=== PATIENT | male | born 1990 | race Caucasian/White ===

== ENCOUNTER 2017-10-22 07:56 | Emergency (ER) | payer MEDICAID, OTHER ==
[2017-10-22 08:08] VITALS: BP 120/96
--- NOTE | 2017-10-22 08:35 | UC ---
Throat Pain/Nasal Jaison HPI - HPI Summary HPI Summary: 27 y/o female presents to the urgent care c/o sinus congestion and chest congestion for the past months. Pt reports symptoms started with a common cold. Her has been taking Nyquil, Dayquil and Mucinex w/o any relief of symptoms. For the past week symptoms are getting worse, Cough is productive with green sputum , mild SOB, wheezing and subjective chill and fever at night. Pt denies chest pain, abdominal pain, N/V/D or urinary symptoms. No travel ouside the country - History of Current Complaint Chief Complaint: UCGeneralIllness Stated Complaint: CONGESTED Time Seen by Provider: 10/22/17 08:33 Hx Obtained From: Patient Onset/Duration: Gradual Onset, Lasting Weeks - 4 weeks, Worse Since - 1 week Severity: Moderate Pain Intensity: 6 - headache Pain Scale Used: 0-10 Numeric Cough: Sputum Appears - green Associated Signs & Symptoms: Positive: Wheezing, Sinus Discomfort, Nasal Discharge, Fever - subjective - Epiglottits Risk Factors Epiglottis Risk Factors: Negative - Allergies/Home Medications Allergies/Adverse Reactions: Allergies Allergy/AdvReac Type Severity Reaction Status Date / Time No Known Allergies Allergy Verified 10/22/17 08:08 Home Medications: Home Medications Pseudoephedrine-Guaifenesin [Mucinex D 60-600 mg] 1 tab PO Q12HR PRN 10/22/17 [ History Confirmed 10/22/17] PMH/Surg Hx/FS Hx/Imm Hx Previously Healthy: Yes - Pt denies PMHx - Surgical History Surgical History: Yes Surgery Procedure, Year, and Place: right elbow reconstruction r/t fx dislocation - at 8 years old - Family History Known Family History: Positive: Hypertension - Social History Occupation: Employed Full-time Lives: With Family Alcohol Use: Weekly Substance Use Type: Marijuana Substance Use Comment - Amount & Last Used: Daily Smoking Status (MU): Heavy Every Day Tobacco Smoker Type: Cigarettes Amount Used/How Often: 1ppd - Immunization History Most Recent Influenza Vaccination: Not uTD Review of Systems Constitutional: Fever - subjective at home, Chills Skin: Negative Eyes: Negative ENT: Nasal Discharge, Sinus Congestion, Sinus Pain/Tenderness Respiratory: Shortness Of Breath, Cough, Other - wheezing Cardiovascular: Negative Gastrointestinal: Negative Genitourinary: Negative Motor: Negative Neurovascular: Negative Musculoskeletal: Negative Neurological: Negative Psychological: Negative Is Patient Immunocompromised?: No All Other Systems Reviewed And Are Negative: Yes Physical Exam Triage Information Reviewed: Yes Vital Signs: Initial Vital Signs Temp 97.9 F 10/22/17 08:02 Pulse 79 10/22/17 08:02 Resp 18 10/22/17 08:02 BP 120/96 10/22/17 08:02 Pulse Ox 99 10/22/17 08:02 - Additional Comments Vital Signs Reviewed: Yes General: well developed, well nourished male sitting in the examining table w/o any apparent distress Eyes: Positive: Conjunctiva Clear - PERRLA, EOMI, fundi grossly normal ENT: Positive: Normal ENT inspection, Hearing grossly normal, Pharynx normal, Nasal congestion - edematous and erythematous nasal mucosa, Nasal drainage - yellowish drainage, TMs normal. Negative: Tonsillar swelling, Tonsillar exudate Neck: Positive: Supple, Nontender, No Lymphadenopathy Respiratory: no orthopnea or dyspnea. Able to speak in full sentences, no retractions or accessory muscle use, no tripod position, stridor, or head bobbing. breath sound present, scattered rhonchi in the RT upper lung, no wheezes, or rales Cardiovascular: Positive: RRR, No Murmur, Pulses Normal, Brisk Capillary Refill Abdomen Description: Positive: Nontender, No Organomegaly, Soft. Negative: CVA Tenderness (R), CVA Tenderness (L) Bowel Sounds: Positive: Present Musculoskeletal Exam: Normal Musculoskeletal: Positive: Strength Intact, ROM Intact, No Edema Neurological Exam: Normal Psychological Exam: Normal Skin Exam: Normal Throat Pain/Nasal Course/Dx - Course Course Of Treatment: 27 y/o female presents to the urgent care c/o sinus congestion and chest congestion for the past months. Pt reports symptoms started with a common cold. He has been taking Nyquil, Dayquil and Mucinex w/o any relief of symptoms. For the past week symptoms are getting worse, Cough is productive with green sputum, mild SOB, wheezing and subjective chill and fever at night. Pt denies chest pain, abdominal pain, N/V/D or urinary symptoms. No travel ouside the country. Hx obtained. Pt with scattered rhonchi in the RT upper lung on examination. Chest x-ray ordered to r/o pneumonia.Impression:No cardiopulmonary disease observed. Pt with Acute bronchitis on examination. Pt Rx Z-allison PO, tessalon tabs and Albuterol inhaler to alleviate bronchospasm. Pt advised to increase fluid intake and eat well. if not improvement or worsening of symptoms to return to the urgent care or f/u with PCP for further management. pt understood and agreed with plan of care - Differential Dx/Diagnosis Differential Diagnosis/HQI/PQRI: Influenza, Laryngitis, Pharyngitis, Sinusitis, Tonsillitis, URI, Other - pneumonia, bronchitis, asthma Provider Diagnoses: 1- Acute bronchitis. 2- cough Discharge - Discharge Plan Condition: Stable Disposition: HOME Prescriptions: Albuterol HFA INHALER* [Ventolin HFA Inhaler*] 1 - 2 puff INH Q4H PRN #1 mdi PRN Reason: Wheezing Azithromyxin ALLISON (NF) [Z-Allison (Zithromax) 250 mg tabs #6] 2 tab PO .TODAY, THEN 1 DAILY #6 tab Benzonatate CAP* [Tessalon 100 MG CAP*] 100 mg PO TID PRN #15 cap PRN Reason: Cough Patient Education Materials: Acute Bronchitis (ED) Referrals: [facility] [place] [facility] [Outside] Additional Instructions: 1-Please take full course of antibiotic to avoid resistance. 2-Take Tessalon PO tabs as directed and use the albuterol inhaler to alleviate cough. Increase fluid intake, rest and eat well. 3- If symptoms do not improve or worsen or your develop SOB with fever and severe wheezing please go immediately to the ER further evaluation and treatment. 4- F/u with your PCP in 2-3 days for further management if not improvement.
--- NOTE | 2017-10-22 09:16 | RAD ---
Indication: Productive cough. 2 views of the chest including dual energy PA views demonstrate no mediastinal shift. Heart is of normal size and configuration. Lung flores are clear. No prior study is available for comparison. IMPRESSION: No active cardiopulmonary disease is noted.
== END 2017-10-22 09:40 | disposition home or self-care (01) ==
LOC: UCEAST 07:56
DX: J20.9 Acute bronchitis, unspecified (principal); R05 Cough; F12.90 Cannabis use, unspecified, uncomplicated
CPT/HCPCS: 71020; 99202; G0463